=== PATIENT | male | born 1985 | race Caucasian/White ===

== ENCOUNTER → 2017-10-10 13:28 | Outpatient (CLI) | payer OTHER, SELFPAY | PROVIDERS: PCP Naturopath; Referring Provider Physical Medicine & Rehabilitation; Visit Provider Internal Medicine | DX: M87.00 Idiopathic aseptic necrosis of unspecified bone (principal); M25.512 Pain in left shoulder | CPT/HCPCS: 99211 ==

== ENCOUNTER → 2017-10-25 08:32 | Outpatient (CLI) | payer OTHER, SELFPAY ==
--- NOTE | 2017-10-25 | OV.WND_ITS ---
Progress Note Details Patient Name: Enoch Canales I. Patient Number: [id number] PatientPatientDate: 10/25/2017 Clinician: Bethany Ramachandran Clinician Cosigner: Jaclyn Loving Physician / Shear Assembler: Sunday Solo SUBJECTIVE Chief Complaint This information was obtained from the patient Avascular Necrosis of left shoulder. Allergies NKDA ASSESSMENT PROCEDURES HBO Hyperbaric treatment #1 was completed today for Acute peripheral arterial insufficiency. Pre- Treatment Vital Signs were: Time Vitals Taken: 06:15, Blood Pressure: 128/87 mmHg, Pulse: 74 bpm, Respiratory Rate: 16 breaths/min, Temperature: 97.9 ?F, Pulse Oximetry: 98 %. Patient reports a pain level of 0. The treatment protocol provided was 2.5 PRIYANK x 90 minutes w/ 100% oxygen and 2-10 minute air breaks. The dive rate down was 1.5 psi / minute. The dive rate up was 1.5 psi / minute. The total treatment length was 140 minutes. Post- Treatment Vital Signs were: Time Vitals Taken: 08:55, Blood Pressure: 135/94 mmHg, Pulse: 70 bpm, Respiratory Rate: 16 breaths/min, Temperature: 97.4 ?F, Pulse Oximetry: 100 %. Patient reports a pain level of 0. No adverse events were encountered. Treatment Notes: Treatment complete. Patient tolerated well. Additional Information Physician was readily available during the entire treatment.: Yes Is Patient 30 day subsequent History and Physical due?: No PLAN Additional Orders: Follow-Up Appointments Return Appointment: - - Mon-Monday at 0615 for HBO Treatment General Notes: Off label indication not offered. 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 Treatment protocol 2.5 PRIYANK x 90 with 2 ten minute air breaks. Ascent and Descent rate 1.5 psi per min. I've reviewed the clinician's documentation and agree with the evaluation and plan as written. Electronic Signature(s) Signed By: Date: Sunday Solo MD 10/25/2017 16:09:26 Entered By: Sunday Solo on 10/25/2017 16:08:04
== END ==
PROVIDERS: PCP Naturopath; Referring Provider Physical Medicine & Rehabilitation; Visit Provider Internal Medicine
DX: M87.00 Idiopathic aseptic necrosis of unspecified bone (principal); M25.512 Pain in left shoulder
CPT/HCPCS: G0277

== ENCOUNTER → 2017-10-26 09:30 | Outpatient (CLI) | payer OTHER, SELFPAY ==
--- NOTE | 2017-10-26 | OV.WND_ITS ---
Progress Note Details Patient Name: Enoch Canales I. Patient Number: [id number] PatientPatientDate: 10/26/2017 Clinician: Bethany Ramachandran Clinician Cosigner: Jaclyn Loving Physician / Medical Scheduler: Sunday Solo SUBJECTIVE Chief Complaint This information was obtained from the patient Avascular Necrosis of left shoulder. Allergies NKDA ASSESSMENT PROCEDURES HBO Hyperbaric treatment #2 was completed today for Acute peripheral arterial insufficiency. Pre- Treatment Vital Signs were: Time Vitals Taken: 06:20, Blood Pressure: 134/85 mmHg, Pulse: 80 bpm, Respiratory Rate: 16 breaths/min, Temperature: 97.9 ?F, Pulse Oximetry: 98 %. Patient reports a pain level of 0. The treatment protocol provided was 2.5 PRIYANK x 90 minutes w/ 100% oxygen and 2-10 minute air breaks. The dive rate down was 1.5 psi / minute. The dive rate up was 1.5 psi / minute. The total treatment length was 140 minutes. Post- Treatment Vital Signs were: Time Vitals Taken: 08:55, Blood Pressure: 133/93 mmHg, Pulse: 70 bpm, Respiratory Rate: 16 breaths/min, Temperature: 98.6 ?F, Pulse Oximetry: 100 %. Patient reports a pain level of 0. No adverse events were encountered. Treatment Notes: No issues during today's treatment. Additional Information Physician was readily available during the entire treatment.: Yes Is Patient 30 day subsequent History and Physical due?: No PLAN Additional Orders: Follow-Up Appointments Return Appointment: - - Mon-Monday at 0615 for HBO Treatment. 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 Treatment protocol 2.5 PRIYANK x 90 minutes with 2 ten minute air breaks. Ascent and Descent rate: 1.5 psi per min. I've reviewed the clinician's documentation and agree with the evaluation and plan as written. Electronic Signature(s) Signed By: Date: Sunday Solo MD 10/26/2017 15:39:04 Entered By: Sunday Solo on 10/26/2017 15:38:23
== END ==
PROVIDERS: PCP Naturopath; Visit Provider Internal Medicine
DX: M87.00 Idiopathic aseptic necrosis of unspecified bone (principal); M25.512 Pain in left shoulder
CPT/HCPCS: G0277

== ENCOUNTER → 2017-10-27 09:49 | Outpatient (CLI) | payer OTHER, SELFPAY ==
--- NOTE | 2017-10-27 | OV.WND_ITS ---
Progress Note Details Patient Name: Enoch Canales I. Patient Number: [id number] PatientPatientDate: 10/27/2017 Clinician: Bethany Ramachandran Clinician Cosigner: Jaclyn Loving Physician / Flavor Maker: Sunday Solo SUBJECTIVE Chief Complaint This information was obtained from the patient Avascular Necrosis of left shoulder. Allergies NKDA ASSESSMENT PROCEDURES HBO Hyperbaric treatment #3 was completed today for Acute peripheral arterial insufficiency. Pre- Treatment Vital Signs were: Time Vitals Taken: 06:15, Blood Pressure: 124/77 mmHg, Pulse: 74 bpm, Respiratory Rate: 16 breaths/min, Temperature: 97.6 ?F, Pulse Oximetry: 98 %. Patient reports a pain level of 0. The treatment protocol provided was 2.5 PRIYANK x 90 minutes w/ 100% oxygen and 2-10 minute air breaks. The dive rate down was 1.5 psi / minute. The dive rate up was 1.5 psi / minute. The total treatment length was 140 minutes. Post- Treatment Vital Signs were: Time Vitals Taken: 08:51, Blood Pressure: 126/80 mmHg, Pulse: 71 bpm, Respiratory Rate: 16 breaths/min, Temperature: 97.3 ?F, Pulse Oximetry: 99 %. Patient reports a pain level of 0. No adverse events were encountered. Treatment Notes: No issues during today's treatment. 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 Treatment protocol 2.5 PRIYANK x 90 minutes with 2 ten minute air breaks. Ascent and Descent rate: 1.5 psi per min. I've reviewed the clinician's documentation and agree with the evaluation and plan as written. Electronic Signature(s) Signed By: Date: Sunday Solo MD 10/27/2017 13:30:07 Entered By: Sunday Solo on 10/27/2017 13:29:21
== END ==
PROVIDERS: PCP Naturopath; Visit Provider Internal Medicine
DX: M87.00 Idiopathic aseptic necrosis of unspecified bone (principal); M25.512 Pain in left shoulder
CPT/HCPCS: G0277

== ENCOUNTER → 2017-10-30 13:23 | Outpatient (CLI) | payer OTHER, SELFPAY ==
--- NOTE | 2017-10-30 | OV.WND_ITS ---
Progress Note Details Patient Name: Enoch Canales I. Patient Number: [id number] PatientPatientDate: 10/30/2017 Clinician: Bethany Ramachandran Clinician Cosigner: Jaclyn Loving Physician / Flight Communications Officer: Sunday Solo SUBJECTIVE Chief Complaint This information was obtained from the patient Avascular Necrosis of left shoulder. Allergies NKDA ASSESSMENT PROCEDURES HBO Hyperbaric treatment #4 was completed today for Acute peripheral arterial insufficiency. Pre- Treatment Vital Signs were: Time Vitals Taken: 06:15, Blood Pressure: 121/77 mmHg, Pulse: 74 bpm, Respiratory Rate: 16 breaths/min, Temperature: 97.9 ?F, Pulse Oximetry: 95 %. Patient reports a pain level of 0. The treatment protocol provided was 2.5 PRIYANK x 90 minutes w/ 100% oxygen and 2-10 minute air breaks. The dive rate down was 1.5 psi / minute. The dive rate up was 1.5 psi / minute. The total treatment length was 145 minutes. Post- Treatment Vital Signs were: Time Vitals Taken: 08:55, Blood Pressure: 143/100 mmHg, Pulse : 63 bpm, Respiratory Rate: 16 breaths/min, Temperature: 97.3 ?F, Pulse Oximetry: 100 %. Patient reports a pain level of 0. No adverse events were encountered. Treatment Notes: No issues during today's treatment. 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 Treatment protocol 2.5 PRIYANK x 90 minutes with 2 ten minute air breaks. Ascent and Descent rate: 1.5 psi per min. I've reviewed the clinician's documentation and agree with the evaluation and plan as written. Electronic Signature(s) Signed By: Date: Sunday Solo MD 10/30/2017 13:33:28 Entered By: Sunday Solo on 10/30/2017 13:27:18
== END ==
PROVIDERS: PCP Naturopath; Visit Provider Internal Medicine
DX: M87.00 Idiopathic aseptic necrosis of unspecified bone (principal); M25.512 Pain in left shoulder
CPT/HCPCS: G0277

== ENCOUNTER → 2017-10-31 08:51 | Outpatient (CLI) | payer OTHER, SELFPAY ==
--- NOTE | 2017-10-31 | OV.WND_ITS ---
Progress Note Details Patient Name: Enoch Canales I. Patient Number: [id number] PatientPatientDate: 10/31/2017 Clinician: Bethany Ramachandran Clinician Cosigner: Jaclyn Loving Physician / Structured Cabling Technician: Sunday Solo SUBJECTIVE Chief Complaint This information was obtained from the patient Avascular Necrosis of left shoulder. Allergies NKDA ASSESSMENT PROCEDURES HBO Hyperbaric treatment #5 was completed today for Acute peripheral arterial insufficiency. Pre- Treatment Vital Signs were: Time Vitals Taken: 06:20, Blood Pressure: 113/72 mmHg, Pulse: 62 bpm, Respiratory Rate: 16 breaths/min, Temperature: 98.1 ?F, Pulse Oximetry: 100 %. Patient reports a pain level of 0. The treatment protocol provided was 2.5 PRIYANK x 90 minutes w/ 100% oxygen and 2-10 minute air breaks. The dive rate down was 1.5 psi / minute. The dive rate up was 1.5 psi / minute. The total treatment length was 140 minutes. Post- Treatment Vital Signs were: Time Vitals Taken: 08:50, Blood Pressure: 122/79 mmHg, Pulse: 66 bpm, Respiratory Rate: 16 breaths/min, Temperature: 98.3 ?F, Pulse Oximetry: 100 %. Patient reports a pain level of 0. No adverse events were encountered. Treatment Notes: Patient completed treatment without any complications. Additional Information Physician was readily available during the entire treatment.: Yes Is Patient 30 day subsequent History and Physical due?: No PLAN Additional Orders: Scribing Attestation I attest, as the nurse, that I scribed these orders for the physician. 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 Treatment protocol 2.5 PRIYANK x 90 minutes with 2 ten minute air breaks. Ascent and Descent rate: 1.5 psi per min. I've reviewed the clinician's documentation and agree with the evaluation and plan as written. Electronic Signature(s) Signed By: Date: Sunday Solo MD 11/01/2017 07:05:31 Entered By: Sunday Solo on 10/31/2017 13:02:04
== END ==
PROVIDERS: PCP Naturopath; Visit Provider Internal Medicine
DX: M87.00 Idiopathic aseptic necrosis of unspecified bone (principal); M25.512 Pain in left shoulder
CPT/HCPCS: G0277

== ENCOUNTER → 2017-11-01 09:40 | Outpatient (CLI) | payer OTHER, SELFPAY ==
--- NOTE | 2017-11-01 | OV.WND_ITS ---
Progress Note Details Patient Name: Enoch Canales I. Patient Number: [id number] PatientPatientDate: 11/01/2017 Clinician: Bethany Ramachandran Clinician Cosigner: Jaclyn Loving Physician / Vascular Surgery Physician: Sunday Solo SUBJECTIVE Chief Complaint This information was obtained from the patient Avascular Necrosis of left shoulder. Allergies NKDA ASSESSMENT PROCEDURES HBO Hyperbaric treatment #6 was completed today for Acute peripheral arterial insufficiency. Pre- Treatment Vital Signs were: Time Vitals Taken: 06:15, Blood Pressure: 127/87 mmHg, Pulse: 69 bpm, Respiratory Rate: 18 breaths/min, Temperature: 98.6 ?F, Pulse Oximetry: 100 %. Patient reports a pain level of 0. The treatment protocol provided was 2.5 PRIYANK x 90 minutes w/ 100% oxygen and 2-10 minute air breaks. The dive rate down was 1.5 psi / minute. The dive rate up was 1.5 psi / minute. The total treatment length was 140 minutes. Post- Treatment Vital Signs were: Time Vitals Taken: 08:50, Blood Pressure: 129/82 mmHg, Pulse: 70 bpm, Respiratory Rate: 16 breaths/min, Temperature: 97.8 ?F, Pulse Oximetry: 100 %. Patient reports a pain level of 0. No adverse events were encountered. Treatment Notes: Patient completed treatment. Tolerated well. 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 Treatment protocol 2.5 PRIYANK x 90 minutes with 2 ten minute air breaks. Ascent and Descent rate: 1.5 psi per min. I've reviewed the clinician's documentation and agree with the evaluation and plan as written. Electronic Signature(s) Signed By: Date: Sunday Solo MD 11/02/2017 07:19:13 Entered By: Sunday Solo on 11/01/2017 13:18:45
== END ==
PROVIDERS: PCP Naturopath; Visit Provider Internal Medicine
DX: M87.00 Idiopathic aseptic necrosis of unspecified bone (principal); M25.512 Pain in left shoulder
CPT/HCPCS: G0277

== ENCOUNTER → 2017-11-02 08:45 | Outpatient (CLI) | payer OTHER, SELFPAY | PROVIDERS: PCP Naturopath; Visit Provider Internal Medicine | DX: M87.00 Idiopathic aseptic necrosis of unspecified bone (principal); M25.512 Pain in left shoulder | CPT/HCPCS: G0277 ==

== ENCOUNTER → 2017-11-03 09:49 | Outpatient (CLI) | payer OTHER, SELFPAY ==
--- NOTE | 2017-11-03 | OV.WND_ITS ---
Progress Note Details Patient Name: Enoch Canales I. Patient Number: [id number] PatientPatientDate: 11/03/2017 Clinician: Bethany Ramachandran Physician / Contribution Solicitor: Sunday Solo SUBJECTIVE Chief Complaint This information was obtained from the patient Avascular Necrosis of left shoulder. Allergies NKDA ASSESSMENT PROCEDURES HBO Hyperbaric treatment #8 was completed today for Acute peripheral arterial insufficiency. Pre- Treatment Vital Signs were: Time Vitals Taken: 06:15, Blood Pressure: 122/83 mmHg, Pulse: 75 bpm, Respiratory Rate: 16 breaths/min, Temperature: 98.3 ?F, Pulse Oximetry: 99 %. Patient reports a pain level of 7. The treatment protocol provided was 2.5 PRIYANK x 90 minutes w/ 100% oxygen and 2-10 minute air breaks. The dive rate down was 1.5 psi / minute. The dive rate up was 1.5 psi / minute. The total treatment length was 140 minutes. Post- Treatment Vital Signs were: Time Vitals Taken: 08:53, Blood Pressure: 126/82 mmHg, Pulse: 60 bpm, Respiratory Rate: 16 breaths/min, Temperature: 97.7 ?F, Pulse Oximetry: 100 %. Patient reports a pain level of 7. No adverse events were encountered. Treatment Notes: Patient reported pain of 7/10 again today in his neck, stating that he thinks he slept on it wrong. Believes it is improving. He doesn't believe the pain is connected to his shoulder. Patient completed treatment. 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 Treatment protocol 2.5 PRIYANK x 90 minutes with 2 ten minute air breaks. Ascent and Descent rate: 1.5 psi per min. I've reviewed the clinician's documentation and agree with the evaluation and plan as written. Electronic Signature(s) Signed By: Date: Sunday Solo MD 11/03/2017 13:04:12 Entered By: Sunday Solo on 11/03/2017 13:03:40
== END ==
PROVIDERS: PCP Naturopath; Visit Provider Internal Medicine
DX: M87.00 Idiopathic aseptic necrosis of unspecified bone (principal); M25.512 Pain in left shoulder
CPT/HCPCS: G0277

== ENCOUNTER → 2017-11-06 11:12 | Outpatient (CLI) | payer OTHER, SELFPAY ==
--- NOTE | 2017-11-06 | OV.WND_ITS ---
Progress Note Details Patient Name: Enoch Canales I. Patient Number: [id number] PatientPatientDate: 11/06/2017 Clinician: Bethany Ramachandran Clinician Cosigner: Jaclyn Loving Physician / Cryptologic Technician Technical: Sunday Solo SUBJECTIVE Chief Complaint This information was obtained from the patient Avascular Necrosis of left shoulder. Allergies NKDA ASSESSMENT PROCEDURES HBO Hyperbaric treatment #9 was completed today for Acute peripheral arterial insufficiency. Pre- Treatment Vital Signs were: Time Vitals Taken: 06:15, Blood Pressure: 110/73 mmHg, Pulse: 74 bpm, Respiratory Rate: 16 breaths/min, Temperature: 97.5 ?F, Pulse Oximetry: 97 %. Patient reports a pain level of 0. The treatment protocol provided was 2.5 PRIYANK x 90 minutes w/ 100% oxygen and 2-10 minute air breaks. The dive rate down was 1.5 psi / minute. The dive rate up was 1.5 psi / minute. The total treatment length was 140 minutes. Post- Treatment Vital Signs were: Time Vitals Taken: 08:52, Blood Pressure: 114/78 mmHg, Pulse: 66 bpm, Respiratory Rate: 16 breaths/min, Temperature: 97.6 ?F, Pulse Oximetry: 100 %. Patient reports a pain level of 0. No adverse events were encountered. Treatment Notes: Treatment completed. Patient tolerated well. 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 Treatment protocol 2.5 PRIYANK x 90 minutes with 2 ten minute air breaks. Ascent and Descent rate: 1.5 psi per min. I've reviewed the clinician's documentation and agree with the evaluation and plan as written. Electronic Signature(s) Signed By: Date: Sunday Solo MD 11/07/2017 07:05:55 Entered By: Sunday Solo on 11/06/2017 13:24:05
== END ==
PROVIDERS: PCP Naturopath; Visit Provider Internal Medicine
DX: M87.00 Idiopathic aseptic necrosis of unspecified bone (principal); M25.512 Pain in left shoulder
CPT/HCPCS: G0277

== ENCOUNTER → 2017-11-07 08:40 | Outpatient (CLI) | payer OTHER, SELFPAY ==
--- NOTE | 2017-11-07 | OV.WND_ITS ---
Progress Note Details Patient Name: Enoch Canales I. Patient Number: [id number] PatientPatientDate: 11/07/2017 Clinician: Jaclyn Loving Clinician Cosigner: Georgia Cole Physician / Materials And Processes Manager: Sunday Solo SUBJECTIVE Chief Complaint This information was obtained from the patient Avascular Necrosis of left shoulder. Allergies NKDA ASSESSMENT PROCEDURES HBO Hyperbaric treatment #10 was completed today for Acute peripheral arterial insufficiency. Pre- Treatment Vital Signs were: Time Vitals Taken: 06:15, Blood Pressure: 115/79 mmHg, Pulse: 71 bpm, Respiratory Rate: 16 breaths/min, Temperature: 98 ?F, Pulse Oximetry: 99 %. Patient reports a pain level of 0. The treatment protocol provided was 2.5 PRIYANK x 90 minutes w/ 100% oxygen and 2-10 minute air breaks. The dive rate down was 1.5 psi / minute. The dive rate up was 1.5 psi / minute. The total treatment length was 142 minutes. Post- Treatment Vital Signs were: Time Vitals Taken: 08:55, Blood Pressure: 118/79 mmHg, Pulse: 73 bpm, Respiratory Rate: 16 breaths/min, Temperature: 98.3 ?F, Pulse Oximetry: 99 %. Patient reports a pain level of 0. No adverse events were encountered. Treatment Notes: No problems during today's treatment. 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 Treatment protocol 2.5 PRIYANK x 90 minutes with 2 ten minute air breaks. Ascent and Descent rate: 1.5 psi per min. I've reviewed the clinician's documentation and agree with the evaluation and plan as written. Electronic Signature(s) Signed By: Date: Sunday Solo MD 11/08/2017 07:31:07 Entered By: Sunday Solo on 11/08/2017 07:26:32
== END ==
PROVIDERS: PCP Naturopath; Visit Provider Internal Medicine
DX: M87.00 Idiopathic aseptic necrosis of unspecified bone (principal); M25.512 Pain in left shoulder
CPT/HCPCS: G0277

== ENCOUNTER → 2017-11-08 11:21 | Outpatient (CLI) | payer OTHER, SELFPAY ==
--- NOTE | 2017-11-08 | OV.WND_ITS ---
Progress Note Details Patient Name: Enoch Canales I. Patient Number: [id number] PatientPatientDate: 11/08/2017 Clinician: Jaclyn Loving Clinician Cosigner: Georgia Cole Physician / Retread Mold Operator: Sunday Solo SUBJECTIVE Chief Complaint This information was obtained from the patient Avascular Necrosis of left shoulder. Allergies NKDA ASSESSMENT PROCEDURES HBO Hyperbaric treatment #11 was completed today for Acute peripheral arterial insufficiency. Pre- Treatment Vital Signs were: Time Vitals Taken: 06:20, Blood Pressure: 126/77 mmHg, Pulse: 70 bpm, Respiratory Rate: 16 breaths/min, Temperature: 98 ?F, Pulse Oximetry: 99 %. Patient reports a pain level of 0. The treatment protocol provided was 2.5 PRIYANK x 90 minutes w/ 100% oxygen and 2-10 minute air breaks. The dive rate down was 1.5 psi / minute. The dive rate up was 1.5 psi / minute. The total treatment length was 140 minutes. Post- Treatment Vital Signs were: Time Vitals Taken: 08:55, Blood Pressure: 122/85 mmHg, Pulse: 70 bpm, Respiratory Rate: 16 breaths/min, Temperature: 98.4 ?F, Pulse Oximetry: 99 %. Patient reports a pain level of 0. No adverse events were encountered. Treatment Notes: Treatment completed without any issues. 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 Treatment protocol 2.5 PRIYANK x 90 minutes with 2 ten minute air breaks. Ascent and Descent rate: 1.5 psi per min. I've reviewed the clinician's documentation and agree with the evaluation and plan as written. Electronic Signature(s) Signed By: Date: Sunday Solo MD 11/09/2017 11:31:50 Entered By: Sunday Solo on 11/08/2017 13:58:43
== END ==
PROVIDERS: PCP Naturopath; Visit Provider Internal Medicine
DX: M87.00 Idiopathic aseptic necrosis of unspecified bone (principal); M25.512 Pain in left shoulder
CPT/HCPCS: G0277

== ENCOUNTER → 2017-11-09 08:59 | Outpatient (CLI) | payer OTHER, SELFPAY ==
--- NOTE | 2017-11-09 | OV.WND_ITS ---
Progress Note Details Patient Name: Enoch Canales I. Patient Number: [id number] PatientPatientDate: 11/09/2017 Clinician: Jaclyn Loving Clinician Cosigner: Georgia Cole Physician / Book Cleaner: Sunday Solo SUBJECTIVE Chief Complaint This information was obtained from the patient Avascular Necrosis of left shoulder. Allergies NKDA ASSESSMENT PROCEDURES HBO Hyperbaric treatment #12 was completed today for Acute peripheral arterial insufficiency. Pre- Treatment Vital Signs were: Time Vitals Taken: 06:20, Blood Pressure: 113/74 mmHg, Pulse: 78 bpm, Respiratory Rate: 18 breaths/min, Temperature: 98.4 ?F, Pulse Oximetry: 98 %. Patient reports a pain level of 0. The treatment protocol provided was 2.5 PRIYANK x 90 minutes w/ 100% oxygen and 2-10 minute air breaks. The dive rate down was 1.5 psi / minute. The dive rate up was 1.5 psi / minute. The total treatment length was 140 minutes. Post- Treatment Vital Signs were: Time Vitals Taken: 08:55, Blood Pressure: 136/87 mmHg, Pulse: 74 bpm, Respiratory Rate: 18 breaths/min, Temperature: 98.4 ?F, Pulse Oximetry: 100 %. Patient reports a pain level of 0. No adverse events were encountered. Treatment Notes: Treatment completed without any issues. Additional Information Physician was readily available during the entire treatment.: Yes Is Patient 30 day subsequent History and Physical due?: No PLAN Additional Orders: Scribing Attestation I attest, as the nurse, that I scribed these orders for the physician. 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 Treatment protocol 2.5 PRIYANK x 90 minutes with 2 ten minute air breaks. Ascent and Descent rate: 1.5 psi per min. I've reviewed the clinician's documentation and agree with the evaluation and plan as written. Electronic Signature(s) Signed By: Date: Sunday Solo MD 11/10/2017 07:24:06 Entered By: Sunday Solo on 11/10/2017 07:23:23
== END ==
PROVIDERS: PCP Naturopath; Visit Provider Internal Medicine
DX: M87.00 Idiopathic aseptic necrosis of unspecified bone (principal); M25.512 Pain in left shoulder
CPT/HCPCS: G0277

== ENCOUNTER → 2017-11-10 08:52 | Outpatient (CLI) | payer OTHER, SELFPAY ==
--- NOTE | 2017-11-10 | OV.WND_ITS ---
Progress Note Details Patient Name: Enoch Canales I. Patient Number: [id number] PatientPatientDate: 11/10/2017 Clinician: Jaclyn Loving Clinician Cosigner: Georgia Cole Physician / Playground Equipment Erector: Sunday Solo SUBJECTIVE Chief Complaint This information was obtained from the patient Avascular Necrosis of left shoulder. Allergies NKDA ASSESSMENT PROCEDURES HBO Hyperbaric treatment #13 was completed today for Acute peripheral arterial insufficiency. Pre- Treatment Vital Signs were: Time Vitals Taken: 06:20, Blood Pressure: 123/84 mmHg, Pulse: 70 bpm, Respiratory Rate: 16 breaths/min, Temperature: 98.4 ?F, Pulse Oximetry: 98 %. Patient reports a pain level of 0. The treatment protocol provided was 2.5 PRIYANK x 90 minutes w/ 100% oxygen and 2-10 minute air breaks. The dive rate down was 1.5 psi / minute. The dive rate up was 1.5 psi / minute. The total treatment length was 140 minutes. Post- Treatment Vital Signs were: Time Vitals Taken: 08:55, Blood Pressure: 139/92 mmHg, Pulse: 68 bpm, Respiratory Rate: 16 breaths/min, Temperature: 98.4 ?F, Pulse Oximetry: 100 %. Patient reports a pain level of 0. No adverse events were encountered. Treatment Notes: No issues during today's treatment. Additional Information Physician was readily available during the entire treatment.: Yes Is Patient 30 day subsequent History and Physical due?: No PLAN Additional Orders: Scribing Attestation I attest, as the nurse, that I scribed these orders for the physician. 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 Treatment protocol 2.5 PRIYANK x 90 minutes with 2 ten minute air breaks. Ascent and Descent rate: 1.5 psi per min. I've reviewed the clinician's documentation and agree with the evaluation and plan as written. Electronic Signature(s) Signed By: Date: Sunday Solo MD 11/13/2017 07:13:12 Entered By: Sunday Sloo on 11/13/2017 07:11:31
== END ==
PROVIDERS: PCP Naturopath; Visit Provider Internal Medicine
DX: M87.00 Idiopathic aseptic necrosis of unspecified bone (principal); M25.512 Pain in left shoulder
CPT/HCPCS: G0277

== ENCOUNTER → 2017-11-13 08:54 | Outpatient (CLI) | payer OTHER, SELFPAY ==
--- NOTE | 2017-11-13 | OV.WND_ITS ---
Progress Note Details Patient Name: Enoch Canales I. Patient Number: [id number] PatientPatientDate: 11/13/2017 Clinician: Jaclyn Loving Clinician Cosigner: Georgia Cole Physician / It Program Auditor: Sunday Solo SUBJECTIVE Chief Complaint This information was obtained from the patient Avascular Necrosis of left shoulder. Allergies NKDA ASSESSMENT PROCEDURES HBO Hyperbaric treatment #14 was completed today for Acute peripheral arterial insufficiency. Pre- Treatment Vital Signs were: Time Vitals Taken: 06:20, Blood Pressure: 105/71 mmHg, Pulse: 66 bpm, Respiratory Rate: 16 breaths/min, Temperature: 98 ?F, Pulse Oximetry: 98 %. Patient reports a pain level of 0. The treatment protocol provided was 2.5 PRIYANK x 90 minutes w/ 100% oxygen and 2-10 minute air breaks. The dive rate down was 1.5 psi / minute. The dive rate up was 1.5 psi / minute. The total treatment length was 140 minutes. Post- Treatment Vital Signs were: Time Vitals Taken: 08:55, Blood Pressure: 120/83 mmHg, Pulse: 58 bpm, Respiratory Rate: 16 breaths/min, Temperature: 98.3 ?F, Pulse Oximetry: 100 %. Patient reports a pain level of 0. No adverse events were encountered. Treatment Notes: Patient completed treatment without any complications. Additional Information Physician was readily available during the entire treatment.: Yes Is Patient 30 day subsequent History and Physical due?: No PLAN Additional Orders: Follow-Up Appointments Return Appointment: - - Monday-Monday for HBOT. Scribing Attestation I attest, as the nurse, that I scribed these orders for the physician. 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 Treatment protocol 2.5 PRIYANK x 90 minutes with 2 ten minute air breaks. Ascent and Descent rate: 1.5 psi per min. I've reviewed the clinician's documentation and agree with the evaluation and plan as written. Electronic Signature(s) Signed By: Date: Sunday Solo MD 11/14/2017 07:58:14 Entered By: Sunday Solo on 11/14/2017 07:57:23
== END ==
PROVIDERS: PCP Naturopath; Visit Provider Internal Medicine
DX: M87.00 Idiopathic aseptic necrosis of unspecified bone (principal); M25.512 Pain in left shoulder
CPT/HCPCS: G0277

== ENCOUNTER → 2017-11-14 08:42 | Outpatient (CLI) | payer OTHER, SELFPAY ==
--- NOTE | 2017-11-14 | OV.WND_ITS ---
Progress Note Details Patient Name: Enoch Canales I. Patient Number: [id number] PatientPatientDate: 11/14/2017 Clinician: Bethany Ramachandran Clinician Cosigner: Jaclyn Loving Physician / Boat Oar Maker: Sunday Solo SUBJECTIVE Chief Complaint This information was obtained from the patient Avascular Necrosis of left shoulder. Allergies NKDA ASSESSMENT PROCEDURES HBO Hyperbaric treatment #15 was completed today for Acute peripheral arterial insufficiency. Pre- Treatment Vital Signs were: Time Vitals Taken: 06:15, Blood Pressure: 110/72 mmHg, Pulse: 71 bpm, Respiratory Rate: 16 breaths/min, Temperature: 97.9 ?F, Pulse Oximetry: 98 %. Patient reports a pain level of 0. The treatment protocol provided was 2.5 PRIYANK x 90 minutes w/ 100% oxygen and 2-10 minute air breaks. The dive rate down was 1.5 psi / minute. The dive rate up was 1.5 psi / minute. The total treatment length was 140 minutes. Post- Treatment Vital Signs were: Time Vitals Taken: 08:48, Blood Pressure: 129/83 mmHg, Pulse: 62 bpm, Respiratory Rate: 16 breaths/min, Temperature: 98.2 ?F, Pulse Oximetry: 100 %. Patient reports a pain level of 0. No adverse events were encountered. Treatment Notes: Patient completed treatment without any complications. 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 Treatment protocol 2.5 PRIYANK x 90 minutes with 2 ten minute air breaks. Ascent and Descent rate: 1.5 psi per min. I've reviewed the clinician's documentation and agree with the evaluation and plan as written. Electronic Signature(s) Signed By: Date: Sunday Solo MD 11/15/2017 07:32:51 Entered By: Sunday Solo on 11/15/2017 07:31:46
== END ==
PROVIDERS: PCP Naturopath; Visit Provider Internal Medicine
DX: M87.00 Idiopathic aseptic necrosis of unspecified bone (principal); M25.512 Pain in left shoulder
CPT/HCPCS: G0277

== ENCOUNTER → 2017-11-15 10:50 | Outpatient (CLI) | payer OTHER, SELFPAY ==
--- NOTE | 2017-11-15 | OV.WND_ITS ---
Progress Note Details Patient Name: Enoch Canales I. Patient Number: [id number] PatientPatientDate: 11/15/2017 Clinician: Bethany Ramachandran Clinician Cosigner: Jaclyn Loving Physician / Librarian Special Collections: Sunday Solo SUBJECTIVE Chief Complaint This information was obtained from the patient Avascular Necrosis of left shoulder. Allergies NKDA ASSESSMENT PROCEDURES HBO Hyperbaric treatment #16 was completed today for Acute peripheral arterial insufficiency. Pre- Treatment Vital Signs were: Time Vitals Taken: 06:15, Blood Pressure: 103/67 mmHg, Pulse: 68 bpm, Respiratory Rate: 16 breaths/min, Temperature: 97.9 ?F, Pulse Oximetry: 100 %. Patient reports a pain level of 0. The treatment protocol provided was 2.5 PRIYANK x 90 minutes w/ 100% oxygen and 2-10 minute air breaks. The total treatment length was 140 minutes. Post- Treatment Vital Signs were: Time Vitals Taken: 08:51, Blood Pressure: 112/82 mmHg, Pulse: 61 bpm, Respiratory Rate: 16 breaths/min, Temperature: 97.9 ?F, Pulse Oximetry: 100 %. Patient reports a pain level of 0. No adverse events were encountered. Treatment Notes: Patient completed treatment without any complications. 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 Treatment protocol 2.5 PRIYANK x 90 minutes with 2 ten minute air breaks. Ascent and Descent rate: 1.5 psi per min. I've reviewed the clinician's documentation and agree with the evaluation and plan as written. Electronic Signature(s) Signed By: Date: Sunday Solo MD 11/16/2017 13:50:51 Entered By: Sunday Solo on 11/16/2017 13:47:56
== END ==
PROVIDERS: PCP Naturopath; Visit Provider Internal Medicine
DX: M87.00 Idiopathic aseptic necrosis of unspecified bone (principal); M25.512 Pain in left shoulder
CPT/HCPCS: G0277

== ENCOUNTER → 2017-11-16 09:28 | Outpatient (CLI) | payer OTHER, SELFPAY ==
--- NOTE | 2017-11-16 | OV.WND_ITS ---
Progress Note Details Patient Name: Enoch Canales I. Patient Number: [id number] PatientPatientDate: 11/16/2017 Clinician: Jaclyn Loving Physician / Account Group Supervisor: Sunday Solo SUBJECTIVE Chief Complaint This information was obtained from the patient Avascular Necrosis of left shoulder. Allergies NKDA ASSESSMENT PROCEDURES HBO Hyperbaric treatment #17 was completed today for Acute peripheral arterial insufficiency. Pre- Treatment Vital Signs were: Time Vitals Taken: 06:20, Blood Pressure: 107/67 mmHg, Pulse: 66 bpm, Respiratory Rate: 16 breaths/min, Temperature: 97.8 ?F, Pulse Oximetry: 100 %. Patient reports a pain level of 0. The treatment protocol provided was 2.5 PRIYANK x 90 minutes w/ 100% oxygen and 2-10 minute air breaks. The dive rate down was 1.5 psi / minute. The dive rate up was 1.5 psi / minute. The total treatment length was 140 minutes. Post- Treatment Vital Signs were: Time Vitals Taken: 08:50, Blood Pressure: 115/75 mmHg, Pulse: 59 bpm, Respiratory Rate: 16 breaths/min, Temperature: 97.8 ?F, Pulse Oximetry: 100 %. Patient reports a pain level of 0. No adverse events were encountered. Treatment Notes: Treatment completed, no issues. Additional Information Physician was readily available during the entire treatment.: Yes Is Patient 30 day subsequent History and Physical due?: No PLAN Additional Orders: Follow-Up Appointments Return Appointment: - - Monday-Monday for HBOT. Scribing Attestation I attest, as the nurse, that I scribed these orders for the physician. 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 Treatment protocol 2.5 PRIYANK x 90 minutes with 2 ten minute air breaks. Ascent and Descent rate: 1.5 psi per min. I've reviewed the clinician's documentation and agree with the evaluation and plan as written. Electronic Signature(s) Signed By: Date: Sunday Solo MD 11/17/2017 07:58:24 Entered By: Sunday Solo on 11/16/2017 13:46:21
== END ==
PROVIDERS: PCP Naturopath; Visit Provider Internal Medicine
DX: M87.00 Idiopathic aseptic necrosis of unspecified bone (principal); M25.512 Pain in left shoulder
CPT/HCPCS: G0277

== ENCOUNTER → 2017-11-17 09:14 | Outpatient (CLI) | payer OTHER, SELFPAY ==
--- NOTE | 2017-11-17 | OV.WND_ITS ---
Progress Note Details Patient Name: Enoch Canales I. Patient Number: [id number] PatientPatientDate: 11/17/2017 Clinician: Bethany Ramachandran Clinician Cosigner: Jaclyn Loving Physician / Senior Javascript Engineer: Sunday Solo SUBJECTIVE Chief Complaint This information was obtained from the patient Avascular Necrosis of left shoulder. Allergies NKDA ASSESSMENT PROCEDURES HBO Hyperbaric treatment #18 was completed today for Acute peripheral arterial insufficiency. Pre- Treatment Vital Signs were: Time Vitals Taken: 06:15, Blood Pressure: 106/64 mmHg, Pulse: 68 bpm, Respiratory Rate: 16 breaths/min, Temperature: 97.8 ?F, Pulse Oximetry: 100 %. Patient reports a pain level of 0. The treatment protocol provided was 2.5 PRIYANK x 90 minutes w/ 100% oxygen and 2-10 minute air breaks. The dive rate down was 1.5 psi / minute. The dive rate up was 1.5 psi / minute. The total treatment length was 139 minutes. Post- Treatment Vital Signs were: Time Vitals Taken: 08:54, Blood Pressure: 114/76 mmHg, Pulse: 62 bpm, Respiratory Rate: 16 breaths/min, Temperature: 98 ?F, Pulse Oximetry: 100 %. Patient reports a pain level of 0. No adverse events were encountered. The treatment was aborted. Treatment Notes: Treatment completed, no issues. 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 Treatment protocol 2.5 PRIYANK x 90 minutes with 2 ten minute air breaks. Ascent and Descent rate: 1.5 psi per min. I've reviewed the clinician's documentation and agree with the evaluation and plan as written. Electronic Signature(s) Signed By: Date: Sunday Solo MD 11/20/2017 09:40:37 Entered By: Sunday Solo on 11/20/2017 09:38:59
== END ==
PROVIDERS: PCP Naturopath; Visit Provider Internal Medicine
DX: M87.00 Idiopathic aseptic necrosis of unspecified bone (principal); M25.512 Pain in left shoulder
CPT/HCPCS: G0277

== ENCOUNTER → 2017-11-20 08:54 | Outpatient (CLI) | payer OTHER, SELFPAY ==
--- NOTE | 2017-11-20 | OV.WND_ITS ---
Progress Note Details Patient Name: Enoch Canales I. Patient Number: [id number] PatientPatientDate: 11/20/2017 Clinician: Jaclyn Loving Clinician Cosigner: Bethany Ramachandran Physician / Fondant Machine Operator: Sunday Solo SUBJECTIVE Chief Complaint This information was obtained from the patient Avascular Necrosis of left shoulder. Allergies NKDA ASSESSMENT PROCEDURES HBO Hyperbaric treatment #19 was completed today for Acute peripheral arterial insufficiency. Pre- Treatment Vital Signs were: Time Vitals Taken: 06:20, Blood Pressure: 108/73 mmHg, Pulse: 83 bpm, Respiratory Rate: 16 breaths/min, Temperature: 98.1 ?F, Pulse Oximetry: 100 %. Patient reports a pain level of 0. The treatment protocol provided was 2.5 PRIYANK x 90 minutes w/ 100% oxygen and 2-10 minute air breaks. The dive rate down was 1.5 psi / minute. The dive rate up was 1.5 psi / minute. The total treatment length was 140 minutes. Post- Treatment Vital Signs were: Time Vitals Taken: 08:55, Blood Pressure: 112/74 mmHg, Pulse: 61 bpm, Respiratory Rate: 16 breaths/min, Temperature: 98.4 ?F, Pulse Oximetry: 100 %. Patient reports a pain level of 0. No adverse events were encountered. Treatment Notes: Patient completed treatment without any issues. . Additional Information Physician was readily available during the entire treatment.: Yes Is Patient 30 day subsequent History and Physical due?: No PLAN Additional Orders: Scribing Attestation I attest, as the nurse, that I scribed these orders for the physician. 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 Treatment protocol 2.5 PRIYANK x 90 minutes with 2 ten minute air breaks. Ascent and Descent rate: 1.5 psi per min. I've reviewed the clinician's documentation and agree with the evaluation and plan as written. Electronic Signature(s) Signed By: Date: Sunday Solo MD 11/21/2017 07:14:34 Entered By: Sunday Solo on 11/21/2017 07:13:49
== END ==
PROVIDERS: PCP Naturopath; Visit Provider Internal Medicine
DX: M87.00 Idiopathic aseptic necrosis of unspecified bone (principal); M25.512 Pain in left shoulder
CPT/HCPCS: G0277

== ENCOUNTER → 2017-11-21 09:53 | Outpatient (CLI) | payer OTHER, SELFPAY ==
--- NOTE | 2017-11-21 | OV.WND_ITS ---
Progress Note Details Patient Name: Enoch Canales I. Patient Number: [id number] PatientPatientDate: 11/21/2017 Clinician: Bethany Ramachandran Clinician Cosigner: Georgia Cole Physician / Clinical Quality Assurance Associate: Sunday Solo SUBJECTIVE Chief Complaint This information was obtained from the patient Avascular Necrosis of left shoulder. Allergies NKDA ASSESSMENT PROCEDURES HBO Hyperbaric treatment #20 was completed today for Acute peripheral arterial insufficiency. Pre- Treatment Vital Signs were: Time Vitals Taken: 06:15, Blood Pressure: 107/66 mmHg, Pulse: 62 bpm, Respiratory Rate: 16 breaths/min, Temperature: 97.9 ?F, Pulse Oximetry: 97 %. Patient reports a pain level of 0. The treatment protocol provided was 2.5 PRIYANK x 90 minutes w/ 100% oxygen and 2-10 minute air breaks. The dive rate down was 1.5 psi / minute. The dive rate up was 1.5 psi / minute. The total treatment length was 140 minutes. Post- Treatment Vital Signs were: Time Vitals Taken: 08:52, Blood Pressure: 116/77 mmHg, Pulse: 67 bpm, Respiratory Rate: 16 breaths/min, Temperature: 97.5 ?F, Pulse Oximetry: 100 %. Patient reports a pain level of 0. No adverse events were encountered. Treatment Notes: Patient completed treatment without any issues. . 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 Treatment protocol 2.5 PRIYANK x 90 minutes with 2 ten minute air breaks. Ascent and Descent rate: 1.5 psi per min. I've reviewed the clinician's documentation and agree with the evaluation and plan as written. Electronic Signature(s) Signed By: Date: Sunday Solo MD 11/22/2017 08:37:45 Entered By: Sunday Solo on 11/22/2017 08:36:38
== END ==
PROVIDERS: PCP Naturopath; Visit Provider Internal Medicine
DX: M87.00 Idiopathic aseptic necrosis of unspecified bone (principal); M25.512 Pain in left shoulder
CPT/HCPCS: G0277

== ENCOUNTER → 2018-01-24 07:24 | Outpatient (CLI) | payer OTHER, SELFPAY ==
--- NOTE | 2018-01-24 | DI.MRI.S_ITS ---
PROCEDURE: MR SHOULDER LT WO/W CON INDICATIONS: AVASCULAR NECROSIS LEFT SHOULDER TECHNIQUE: Noncontrast oblique coronal T1 spin echo and T2 fast spin echo with fat saturation, oblique sagittal T1 spin echo and T2 fast spin echo with fat saturation, axial T1 spin echo and T2 fast spin echo with fat saturation through the shoulder. Post-contrast oblique coronal, oblique sagittal, and axial T1 spin echo with fat saturation through the shoulder. COMPARISON: [facility], CR, XR SHOULDER MIN 2VW LT, 06/17/2016, 15:12. [facility], MR, SHOULDER W&WO CONTRAST, 11/22/2016, 15:08. FINDINGS: Image quality: Excellent. Rotator cuff: Supraspinatus tendinopathy and low-grade articular and bursal surface fraying is present. No high-grade or full-thickness tear is seen. The infraspinatus and teres minor tendons appear grossly intact. Subscapularis tendon appears intact. No atrophy of the rotator cuff musculature.. Bones and bursae: No suspicious bone marrow enhancement. No bone marrow contusions or fractures. Subchondral serpiginous marrow signal changes in keeping with avascular necrosis involving the anatomic humeral head appear grossly stable since 11/22/16. No definite articular surface collapse is noted. No definite interval progression. Mild acromioclavicular joint degeneration. The acromion demonstrates conventional anatomy, without an os acromiale. Mild subacromial/subdeltoid bursitis Capsule and soft tissues: Postsurgical changes related to prior anterior labral repair. There is associated internal labral intermediate signal change and mild scarring which could be postoperative appearance. There also irregularity of the posterior labrum which is likely degenerative fraying with associated glenoid osteophytes and sclerosis. No discrete intrasubstance labral fluid signal to suggest recurrent tear. There is circumferential glenoid rim spurring. Incidental sub-labral foramen image 13 series 12. No suspicious soft tissue enhancement. In the absence of intra-articular contrast, the labrum and glenohumeral ligaments appear intact. The long head of the biceps tendon demonstrates normal location and morphology. The rotator interval appears normal, without fibrosis. The coracohumeral ligament is normal in thickness. IMPRESSION: Overall, unchanged appearance of humeral head avascular necrosis. No evidence of articular surface collapse. No definite progression since 11/22/16. Supraspinatus tendinopathy with low-grade bursal and articular surface fraying. This appears stable to slightly less conspicuous Mild acromial/subdeltoid bursitis, probably unchanged. [id number] glenohumeral degeneration. Dictated by: James Fields M.D. on 01/24/2018 at 8:59 Approved by: James Fields M.D. on 01/24/2018 at 9:10
== END ==
PROVIDERS: PCP Naturopath; Visit Provider Physical Medicine & Rehabilitation
DX: M87.822 Other osteonecrosis, left humerus (principal); M75.52 Bursitis of left shoulder; M19.012 Primary osteoarthritis, left shoulder
CPT/HCPCS: 73223; A9579

== ENCOUNTER → 2018-03-30 12:05 | Outpatient (REF) | payer SELFPAY ==
[2018-03-30 12:39] LABS: Medtox DOT Urine Drug Screen See Separate Report
== END ==
LOC: LAB 12:05
PROVIDERS: PCP Naturopath
DX: Z02.1 Encounter for pre-employment examination (principal)
CPT/HCPCS: 81099

== ENCOUNTER → 2019-05-06 12:02 | Outpatient (CLI) | payer OTHER, SELFPAY ==
[2019-05-06 13:20] LABS: Add Manual Diff / Slide Review NO; Basophils Absolute Auto 0 /uL (0-100); Basophils Percent Auto 0.5 % (0-2); Eosinophils Absolute Auto 100 /uL (0-450); Eosinophils Percent Auto 1.4 % (2-4); Hematocrit 43.5 % (41-53); Hemoglobin 15.2 g/dL (13.5-17.5); Lymphocytes Absolute Auto 1300 /uL (1100-4500); Lymphocytes Percent Auto 21.4 % (25-40); Mean Corpuscular Hemoglobin 31.4 PG (26-34); Mean Corpuscular Volume 89.9 fL (80-100); Monocytes Absolute Auto 500 /uL (0-900); Neutrophils Absolute Auto 4200 /uL (1500-7000); Neutrophils Percent Auto 68.7 % (50-75); Platelet Count 181 X10^3/uL (150-400); Red Blood Cell Count 4.84 X10^6/uL (4.5-5.9); Red Cell Distribution Width 12.3 % (11.6-14.8); White Blood Cell Count 6.2 X10^3/uL (4.5-11.0)
[2019-05-06 13:43] LABS: Alanine Aminotransferase 25 IU/L (<50); Albumin 4.7 g/dL (3.5-5.0); Albumin Globulin Ratio 1.6 (1.0-2.8); Alkaline Phosphatase 68 U/L (38-126); Aspartate Aminotransferase 31 IU/L (17-59); Bilirubin Total 0.4 mg/dL (0.2-1.3); Blood Urea Nitrogen 13 mg/dL (9-20); Calcium 9.5 mg/dL (8.4-10.2); Carbon Dioxide 31 mmol/L (22-32); Chloride 102 mmol/L (98-107); Cholesterol 207 mg/dL (140-199); Estimated Glomerular Filt Rate > 60.0 mL/min (>60); Glucose 82 mg/dL (70-100); HDL Cholesterol 36 mg/dL (40-60); HEMOLYSIS < 15 (0-50); LDL Cholesterol Calculated 150 mg/dL (<100); Sodium 140 mmol/L (137-145); Total Protein 7.7 g/dL (6.3-8.2); Triglycerides 103 mg/dL (35-150)
[2019-05-17 18:02] LABS: Testosterone, Free 2.46 ng/dL (0.87-5.47)
== END ==
PROVIDERS: PCP Naturopath; Visit Provider Naturopath
DX: Z00.00 Encounter for general adult medical examination without abnormal findings (principal); R53.83 Other fatigue
CPT/HCPCS: 36415; 80053; 80061; 84402; 84443; 85025

== ENCOUNTER → 2020-06-01 13:33 | Outpatient (CLI) | payer OTHER, SELFPAY ==
[2020-06-01 13:52] LABS: Semen Sperm Prescence Post-Vas Absent (ABSENT)
== END ==
PROVIDERS: PCP Naturopath; Referring Provider Urology; Visit Provider Urology
DX: Z30.2 Encounter for sterilization (principal)
CPT/HCPCS: 89321

== ENCOUNTER → 2020-08-22 10:20 | Outpatient (CLI) | payer OTHER, SELFPAY ==
[2020-08-22 11:24] LABS: Add Manual Diff / Slide Review NO; Basophils Absolute Auto 0 /uL (0-100); Basophils Percent Auto 0.7 % (0-2); Eosinophils Absolute Auto 100 /uL (0-450); Eosinophils Percent Auto 1.9 % (2-4); Hematocrit 45.5 % (41-53); Hemoglobin 15.8 g/dL (13.5-17.5); Lymphocytes Absolute Auto 1500 /uL (1100-4500); Lymphocytes Percent Auto 28.1 % (25-40); Mean Corpuscular HGB Conc 34.7 % (30-36); Mean Corpuscular Hemoglobin 32.5 PG (26-34); Mean Corpuscular Volume 93.6 fL (80-100); Monocytes Absolute Auto 400 /uL (0-900); Monocytes Percent Auto 8.7 % (3-14); Neutrophils Absolute Auto 3100 /uL (1500-7000); Neutrophils Percent Auto 60.6 % (50-75); Platelet Count 191 X10^3/uL (150-400); Red Blood Cell Count 4.86 X10^6/uL (4.5-5.9); Red Cell Distribution Width 12.2 % (11.6-14.8); White Blood Cell Count 5.2 X10^3/uL (4.5-11.0)
[2020-08-22 11:42] LABS: Alanine Aminotransferase 27 IU/L (<50); Albumin 4.5 g/dL (3.5-5.0); Albumin Globulin Ratio 1.7 (1.0-2.8); Alkaline Phosphatase 65 U/L (38-126); Aspartate Aminotransferase 33 IU/L (17-59); BUN Creatinine Ratio 12.9 (6-22); Bilirubin Total 0.5 mg/dL (0.2-1.3); Blood Urea Nitrogen 13 mg/dL (9-20); Calcium 9.9 mg/dL (8.4-10.2); Carbon Dioxide 29 mmol/L (22-32); Chloride 100 mmol/L (98-107); Cholesterol 229 mg/dL (140-199); Estimated Glomerular Filt Rate > 60.0 mL/min (>60); Globulin 2.7 g/dL (1.7-4.1); Glucose 114 mg/dL (70-100); HDL Cholesterol 64 mg/dL (40-60); HEMOLYSIS < 15 (0-50); LDL Cholesterol Calculated 136 mg/dL (<100); Potassium 4.3 mmol/L (3.4-5.1); Sodium 137 mmol/L (137-145); Total Protein 7.2 g/dL (6.3-8.2); Triglycerides 146 mg/dL (35-150)
== END ==
PROVIDERS: PCP Naturopath; Referring Provider Naturopath; Visit Provider Naturopath
DX: Z00.00 Encounter for general adult medical examination without abnormal findings (principal)
CPT/HCPCS: 36415; 80053; 80061; 85025

== ENCOUNTER → 2022-11-19 08:34 | Outpatient (CLI) | payer OTHER, SELFPAY ==
[2022-11-19 09:17] LABS: Add Manual Diff / Slide Review NO; Basophils Absolute Auto 0 /uL (0-100); Basophils Percent Auto 0.7 % (0-2); Eosinophils Absolute Auto 100 /uL (0-450); Eosinophils Percent Auto 2.2 % (2-4); Hematocrit 40.9 % (41-53); Hemoglobin 14.3 g/dL (13.5-17.5); Lymphocytes Absolute Auto 1000 /uL (1100-4500); Lymphocytes Percent Auto 24.4 % (25-40); Mean Corpuscular Hemoglobin 31.4 PG (26-34); Mean Corpuscular Volume 89.6 fL (80-100); Monocytes Absolute Auto 400 /uL (0-900); Monocytes Percent Auto 11.1 % (3-14); Neutrophils Absolute Auto 2500 /uL (1500-7000); Neutrophils Percent Auto 61.6 % (50-75); Platelet Count 160 X10^3/uL (150-400); Red Blood Cell Count 4.56 X10^6/uL (4.5-5.9); Red Cell Distribution Width 12.2 % (11.6-14.8)
[2022-11-19 09:45] LABS: Alanine Aminotransferase 32 IU/L (<50); Albumin 4.1 g/dL (3.5-5.0); Albumin Globulin Ratio 1.6 (1.0-2.8); Alkaline Phosphatase 54 U/L (38-126); Aspartate Aminotransferase 48 IU/L (17-59); Bilirubin Total 0.6 mg/dL (0.2-1.3); Blood Urea Nitrogen 20 mg/dL (9-20); Calcium 9.1 mg/dL (8.4-10.2); Carbon Dioxide 27 mmol/L (22-32); Chloride 102 mmol/L (98-107); Cholesterol 208 mg/dL (140-199); Estimated Glomerular Filt Rate > 60 mL/min (>60); Globulin 2.6 g/dL (1.7-4.1); Glucose 98 mg/dL (70-100); HDL Cholesterol 45 mg/dL (40-60); HEMOLYSIS < 15 (0-50); LDL Cholesterol Calculated 144 mg/dL (<100); Sodium 136 mmol/L (137-145); Total Protein 6.7 g/dL (6.3-8.2); Triglycerides 96 mg/dL (35-150)
== END ==
PROVIDERS: PCP Naturopath; Referring Provider Naturopath; Visit Provider Naturopath
DX: Z00.00 Encounter for general adult medical examination without abnormal findings (principal)
CPT/HCPCS: 36415; 80053; 80061; 85025

== ENCOUNTER → 2024-01-05 07:24 | Outpatient (CLI) | payer OTHER, SELFPAY ==
[2024-01-05 08:16] LABS: Add Manual Diff / Slide Review NO; Basophils Absolute Auto 0 /uL (0-100); Basophils Percent Auto 0.6 % (0-2); Eosinophils Absolute Auto 100 /uL (0-450); Eosinophils Percent Auto 1.9 % (2-4); Hematocrit 42.8 % (41-53); Hemoglobin 14.8 g/dL (13.5-17.5); Lymphocytes Absolute Auto 1200 /uL (1100-4500); Lymphocytes Percent Auto 26.7 % (25-40); Mean Corpuscular HGB Conc 34.6 % (30-36); Mean Corpuscular Hemoglobin 31.5 PG (26-34); Mean Corpuscular Volume 90.8 fL (80-100); Monocytes Absolute Auto 400 /uL (0-900); Monocytes Percent Auto 9.7 % (3-14); Neutrophils Absolute Auto 2800 /uL (1500-7000); Neutrophils Percent Auto 61.1 % (50-75); Platelet Count 176 X10^3/uL (150-400); Red Blood Cell Count 4.71 X10^6/uL (4.5-5.9); Red Cell Distribution Width 12.2 % (11.6-14.8); White Blood Cell Count 4.6 X10^3/uL (4.5-11.0)
[2024-01-05 08:55] LABS: Alanine Aminotransferase 29 IU/L (<50); Albumin 4.2 g/dL (3.5-5.0); Albumin Globulin Ratio 1.8 (1.0-2.8); Alkaline Phosphatase 66 U/L (38-126); Aspartate Aminotransferase 38 IU/L (17-59); BUN Creatinine Ratio 14.6 (6-22); Bilirubin Total 0.6 mg/dL (0.2-1.3); Blood Urea Nitrogen 15 mg/dL (9-20); Calcium 9.5 mg/dL (8.4-10.2); Carbon Dioxide 29 mmol/L (22-32); Chloride 103 mmol/L (98-107); Cholesterol 189 mg/dL (140-199); Estimated Glomerular Filt Rate > 60 mL/min (>60); Globulin 2.3 g/dL (1.7-4.1); Glucose 90 mg/dL (70-100); HDL Cholesterol 44 mg/dL (40-60); HEMOLYSIS < 15 (0-50); LDL Cholesterol Calculated 122 mg/dL (<100); Potassium 4.4 mmol/L (3.4-5.1); Sodium 139 mmol/L (137-145); Total Protein 6.5 g/dL (6.3-8.2); Triglycerides 114 mg/dL (35-150)
== END ==
PROVIDERS: PCP Naturopath; Referring Provider Naturopath; Visit Provider Naturopath
DX: Z00.00 Encounter for general adult medical examination without abnormal findings (principal)
CPT/HCPCS: 36415; 80053; 80061; 85025

== ENCOUNTER → 2024-02-12 09:02 | Outpatient (CLI) | payer OTHER, SELFPAY | PROVIDERS: PCP Naturopath; Visit Provider Nurse Practitioner Family | DX: J02.9 Acute pharyngitis, unspecified (principal) | CPT/HCPCS: 87070 ==

== ENCOUNTER → 2024-02-21 15:38 | Outpatient (CLI) | payer OTHER, SELFPAY ==
--- NOTE | 2024-02-21 15:39 | DI.US.S_ITS ---
PROCEDURE: US SOFT TISSUE HEAD AND NECK INDICATIONS: RIGHT SUPERIOR LATERAL NECK PAIN TECHNIQUE: Real-time scanning was performed of the neck region of interest, with image documentation. COMPARISON: None. FINDINGS: No mass or cyst in the area of abnormality. Normal vascularity and glandular structures seen. IMPRESSION: No sonographic explanation for pain. Dictated by: Reba Wilkins M.D. on 02/22/2024 at 0:05 Approved by: Reba Wilkins M.D. on 02/22/2024 at 0:06
== END ==
PROVIDERS: PCP Naturopath; Referring Provider Nurse Practitioner Family; Visit Provider Nurse Practitioner Family
DX: M54.2 Cervicalgia (principal)
CPT/HCPCS: 76536

== ENCOUNTER → 2024-08-22 12:15 | Outpatient (CLI) | payer OTHER, SELFPAY ==
[2024-08-22 12:42] LABS: Add Manual Diff / Slide Review NO; Basophils Absolute Auto 0 /uL (0-100); Basophils Percent Auto 0.7 % (0-2); Eosinophils Absolute Auto 100 /uL (0-450); Eosinophils Percent Auto 1.4 % (2-4); Hematocrit 42.5 % (41-53); Hemoglobin 14.5 g/dL (13.5-17.5); Lymphocytes Absolute Auto 1300 /uL (1100-4500); Lymphocytes Percent Auto 29.1 % (25-40); Mean Corpuscular HGB Conc 34.1 % (30-36); Mean Corpuscular Hemoglobin 30.7 PG (26-34); Mean Corpuscular Volume 89.9 fL (80-100); Monocytes Absolute Auto 400 /uL (0-900); Monocytes Percent Auto 8.2 % (3-14); Neutrophils Absolute Auto 2800 /uL (1500-7000); Neutrophils Percent Auto 60.6 % (50-75); Platelet Count 181 X10^3/uL (150-400); Red Blood Cell Count 4.73 X10^6/uL (4.5-5.9); Red Cell Distribution Width 12.6 % (11.6-14.8); White Blood Cell Count 4.6 X10^3/uL (4.5-11.0)
[2024-08-22 13:01] LABS: HEMOLYSIS < 15 (0-50); Iron 99 ug/dL (49-181)
[2024-08-22 13:12] LABS: Percent Iron Saturation 30 % (20-50); Total Iron Binding Capacity 326 ug/dL (261-462); Transferrin 274 mg/dL (206-381)
[2024-08-22 13:39] LABS: Ferritin 8 ng/mL (18-464)
[2024-08-22 13:59] LABS: Vitamin B12 653 pg/mL (239-931)
== END ==
PROVIDERS: PCP Naturopath; Referring Provider Naturopath; Visit Provider Naturopath
DX: E61.1 Iron deficiency (principal)
CPT/HCPCS: 36415; 82607; 82728; 83540; 83550; 85025

== ENCOUNTER → 2024-10-23 16:54 | Outpatient (CLI) | payer OTHER, SELFPAY ==
[2024-10-23 17:54] LABS: Hematocrit 40.5 % (41-53); Hemoglobin 14.1 g/dL (13.5-17.5)
[2024-10-23 18:54] LABS: Ferritin 17 ng/mL (18-464)
== END ==
PROVIDERS: PCP Naturopath; Referring Provider Naturopath; Visit Provider Naturopath
DX: E61.1 Iron deficiency (principal)
CPT/HCPCS: 36415; 82728; 85014; 85018